=== PATIENT | male | born 1970 | race Caucasian/White ===

== ENCOUNTER 2017-06-10 14:50 | Emergency (ER) | payer OTHER ==
[~2017-06-10] VITALS: Ht 175.3 cm; Wt 97.7 kg
[2017-06-10] MEDS ORDERED: NAPROSYN500 MG PO (16:57)
[2017-06-10] MEDS ORDERED: FLEXERIL10 MG PO (16:57)
[2017-06-10 17:16] VITALS: BP 154/97
== END 2017-06-10 17:17 | disposition home or self-care (01) ==
LOC: EME 14:50
DX: S16.1XXA Strain of muscle, fascia and tendon at neck level, initial encounter (principal); M54.12 Radiculopathy, cervical region; V44.5XXA Car driver injured in collision with heavy transport vehicle or bus in traffic accident, initial encounter; Y92.410 Unspecified street and highway as the place of occurrence of the external cause; F17.200 Nicotine dependence, unspecified, uncomplicated
CPT/HCPCS: 99281; 99283

== ENCOUNTER 2017-09-11 10:49 | Emergency (ER) | payer SELFPAY ==
[~2017-09-11] VITALS: Ht 175.3 cm; Wt 93.7 kg
[~2017-09-11 10:49] MED LIST: FLEXERIL10 MG PO; NAPROSYN500 MG PO
[2017-09-11] MEDS ORDERED: KEFLEX500 MG PO (11:48)
[2017-09-11] MEDS ORDERED: BACTRIM,SEPT1 TABLET PO (11:48)
[2017-09-11 12:22] VITALS: BP 115/70
== END 2017-09-11 12:25 | disposition home or self-care (01) ==
LOC: EME 10:49
DX: L03.115 Cellulitis of right lower limb (principal); F17.200 Nicotine dependence, unspecified, uncomplicated
CPT/HCPCS: 99281; 99284